=== PATIENT | female | born 1965 | race African-American/Black ===

== ENCOUNTER 2016-09-01 10:18 | Emergency (ER) | payer SELFPAY ==
[~2016-09-01] VITALS: Ht 162.6 cm; Wt 63.0 kg
[2016-09-01] MEDS ORDERED: ALBUTEROL (10:48)
[2016-09-01] MEDS ORDERED: ACETAMINOPHEN 325MG TABLET PO ONE (12:45)
[2016-09-01 14:35] VITALS: BP 130/68
== END 2016-09-01 14:36 | disposition home or self-care (01) ==
LOC: ER 10:56
DX: S16.1XXA Strain of muscle, fascia and tendon at neck level, initial encounter (principal); M25.512 Pain in left shoulder; M25.522 Pain in left elbow; M79.632 Pain in left forearm; I10 Essential (primary) hypertension; J45.909 Unspecified asthma, uncomplicated; Z85.3 Personal history of malignant neoplasm of breast; V89.2XXA Person injured in unspecified motor-vehicle accident, traffic, initial encounter; Y93.89 Activity, other specified; Y99.8 Other external cause status; Y92.89 Other specified places as the place of occurrence of the external cause
CPT/HCPCS: 72040; 73030; 73080; 73090; 99284; Z7610